=== PATIENT | female | born 1945 | race Caucasian/White ===

== ENCOUNTER 2016-11-08 10:54 | Day surgery (SDC) | payer MEDICARE ==
[2016-10-25 12:45] VITALS: BP 177/90
[~2016-11-08] VITALS: Ht 162.6 cm; Wt 103.0 kg
[~2016-11-08 10:54] MED LIST: ASCO10004 PO; ASPI-496 PO; CALC1CAP8 PO; CHOL200024 PO; LEVO50TA5 PO; METO50TA82 PO; MULT1TAB60 PO; PHYT100T PO; SULF500T36 PO
[2016-11-08] MEDS ORDERED: MIDAZOLAM 1 MG/ML, 2ML ONE (11:09)
[2016-11-08] MEDS ORDERED: FENTANYL PF 100 MCG/2ML ONE ×3 (11:09→14:19)
[2016-11-08] MEDS ORDERED: LIDOCAINE 1%, 2ML ONE (11:14)
[2016-11-08] MEDS ORDERED: LACTATED RINGERS 1,000 ML IV SCH (11:15)
[2016-11-08] MEDS ORDERED: GENTAMICIN 80 MG/2 ML ONE ×2 (11:18→12:22)
[2016-11-08] MEDS ORDERED: AMPICILLIN 1 GM ONE (11:18)
[2016-11-08] MEDS ORDERED: BUPIVACAINE/PF-EPI 0.25% 1:200K ONE (11:23)
[2016-11-08] MEDS ORDERED: THROMBIN 5,000 UNIT VIAL TP ONE ×2 (11:23→13:21)
[2016-11-08] MEDS ORDERED: VANCOMYCIN 500 MG ONE ×2 (11:23→12:30)
[2016-11-08] MEDS ORDERED: LIDOCAINE 1%, 2ML SQ PRN (11:30)
[2016-11-08] MEDS ORDERED: ONDANSETRON 2MG/ML, 2ML ONE (11:58)
[2016-11-08] MEDS ORDERED: PROPOFOL 10 MG/ML, 20ML ONE (11:58)
[2016-11-08] MEDS ORDERED: PHENYLEPHRINE 10 MG/ML ONE (11:58)
[2016-11-08] MEDS ORDERED: DEXAMETHASONE 4 MG/ML, 1ML ONE (11:58)
[2016-11-08] MEDS ORDERED: EPHEDRINE 50 MG/ML, 1ML ONE (11:58)
[2016-11-08] MEDS ORDERED: BUPIVACAINE/PF-EPI 0.25% 1:200K INFIL ONE (12:00)
[2016-11-08] MEDS ORDERED: GENTAMICIN 80 MG/2 ML IVPB ONE (12:00)
[2016-11-08] MEDS ORDERED: VANCOMYCIN 1,000 MG IVPB ONE (12:00)
[2016-11-08] MEDS ORDERED: FENTANYL PF 100 MCG/2ML IV PRN (13:00)
[2016-11-08] MEDS ORDERED: HYDROmorphone 1 MG/ML, 1ML IV PRN (13:00)
[2016-11-08] MEDS ORDERED: ACETAMINOPHEN 325 MG TABLET PO PRN (13:00)
[2016-11-08] MEDS ORDERED: OXYcodone 5 MG/5 ML ORAL.SOL UDC PO PRN (13:00)
[2016-11-08] MEDS ORDERED: PROMETHAZINE 25 MG/ML, 1ML IV PRN (13:00)
[2016-11-08] MEDS ORDERED: METOPROLOL 1 MG/ML, 5ML IV PRN (13:00)
[2016-11-08] MEDS ORDERED: MEPERIDINE/PF 25MG/0.5ML IVPush PRN (13:00)
[2016-11-08] MEDS ORDERED: hydrALAzine 20 MG/ML, 1ML IV PRN (13:00)
[2016-11-08] MEDS ORDERED: OXYcodone 5 MG/5 ML ORAL.SOL UDC ONE (14:19)
[2016-11-08] MEDS ORDERED: FENTANYL PF 250 MCG/5ML ONE (16:03)
== END 2016-11-08 17:40 | disposition home or self-care (01) ==
LOC: OUT 10:54
PROVIDERS: ATTEND Urology
DX: N39.3 Stress incontinence (female) (male) (principal); I10 Essential (primary) hypertension; G47.33 Obstructive sleep apnea (adult) (pediatric); E03.9 Hypothyroidism, unspecified; Z85.3 Personal history of malignant neoplasm of breast; Z90.49 Acquired absence of other specified parts of digestive tract; Z90.12 Acquired absence of left breast and nipple; Z82.49 Family history of ischemic heart disease and other diseases of the circulatory system; Z82.0 Family history of epilepsy and other diseases of the nervous system
CPT/HCPCS: 57288; C1771; J0290; J1100; J1580; J2370; J2405; J2704; J3010; J3370; J3490; J7120; J2250